=== PATIENT | male | born 1995 | race Caucasian/White ===

== ENCOUNTER 2021-11-14 21:26 | Emergency (ER) | payer OTHER ==
[2021-11-14] MEDS ORDERED: Acetaminophen 500 MG Tab PO ONE (22:22)
[2021-11-14 22:38] LABS: CORONAVIRUS COVID-19 NAA POSITIVE (NEGATIVE); RESPIRATORY SYNCYTIAL VIR NAA NEGATIVE (NEGATIVE)
--- NOTE | 2021-11-15 06:43 | EDM.PDOC ---
ED HPI GENERAL MEDICAL PROBLEM - General Chief Complaint: Fever Stated Complaint: FEVER & LIGHT HEADED Time Seen by Provider: 11/14/21 21:27 Source of Information: Reports: Patient History Limitations: Reports: No Limitations - History of Present Illness INITIAL COMMENTS - FREE TEXT/NARRATIVE: Pt. presents to ER with complaints of fever, chills, fatigue, and congestion. Denies any ill contacts. No nausea or vomiting. No chest pain or shortness of breath. Denies any skin rashes. Pt. has not been exposed to any ill contacts. 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 - Related Data Allergies Allergy/AdvReac Type Severity Reaction Status Date / Time Sulfa (Sulfonamide Allergy Other Verified 11/14/21 21:37 Antibiotics) Past Medical History - Past Health History Medical/Surgical History: Denies Medical/Surgical History - Infectious Disease History Infectious Disease History: Reports: Novel Coronavirus Social & Family History - Tobacco Use Tobacco Use Status *Q: Never Tobacco User Second Hand Smoke Exposure: No ED ROS GENERAL - Review of Systems Review Of Systems: See Below Constitutional: Reports: No Symptoms HEENT: Reports: Rhinitis, Throat Pain, Throat Swelling Respiratory: Reports: Cough Cardiovascular: Reports: No Symptoms Endocrine: Reports: No Symptoms GI/Abdominal: Reports: No Symptoms : Reports: No Symptoms Musculoskeletal: Reports: No Symptoms Skin: Reports: No Symptoms Neurological: Reports: No Symptoms Psychiatric: Reports: No Symptoms Hematologic/Lymphatic: Reports: No Symptoms Immunologic: Reports: No Symptoms ED EXAM, GENERAL - Physical Exam Exam: See Below Exam Limited By: No Limitations General Appearance: Alert, WD/WN, No Apparent Distress Eye Exam: Bilateral Eye: EOMI, PERRL Ears: Normal External Exam, Normal Canal, Hearing Grossly Normal, Normal TMs Ear Exam: Bilateral Ear: Auricle Normal, Canal Normal, TM normal Nose: Normal Inspection, Normal Mucosa, No Blood Throat/Mouth: Normal Inspection, Normal Lips, Normal Teeth, Normal Gums, Normal Oropharynx, Normal Voice, No Airway Compromise Head: Atraumatic, Normocephalic Neck: Normal Inspection, Supple, Non-Tender, Full Range of Motion Respiratory/Chest: No Respiratory Distress, Lungs Clear, Normal Breath Sounds, No Accessory Muscle Use, Chest Non-Tender Cardiovascular: Normal Peripheral Pulses, Regular Rate, Rhythm, No Edema, No Gallop, No JVD, No Murmur, No Rub Peripheral Pulses: 4+: Radial (L) GI/Abdominal: Soft, Non-Tender, No Distention, No Mass (Male) Exam: Deferred Rectal (Males) Exam: Deferred Back Exam: Normal Inspection, Full Range of Motion Extremities: Normal Inspection, Normal Range of Motion, Non-Tender, No Pedal Edema, Normal Capillary Refill Neurological: Alert, Oriented, CN II-XII Intact, Normal Cognition, Normal Reflexes, No Motor/Sensory Deficits Psychiatric: Normal Affect, Normal Mood Skin Exam: Warm, Dry, Intact, Normal Color, No Rash Lymphatic: No Adenopathy Course - Vital Signs Last Recorded V/S: Last Vital Signs Temp 37.4 C 11/15/21 00:49 Pulse 112 H 11/15/21 00:49 Resp 16 11/15/21 00:49 BP 137/65 11/15/21 00:49 Pulse Ox 99 11/15/21 00:49 - Orders/Labs/Meds Orders: Active Orders 24 hr Category Date Time Status Chest 1V Frontal [CR] Stat Exams 11/14/21 21:38 Ordered Labs: Laboratory Tests 11/14/21 Range/Units 21:37 Influenza Type A RNA Negative (NEGATIVE) RSV RNA ([facility]) Negative (NEGATIVE) Influenza Type B RNA Negative (NEGATIVE) SARS-CoV-2 RNA ([facility]) Positive H (NEGATIVE) Meds: Medications Discontinued Medications Generic Name Dose Route Start Last Admin Trade Name Freq PRN Reason Stop Dose Admin Acetaminophen 1,000 mg 11/14/21 22:22 Acetaminophen 500 Mg Tab PO 11/14/21 22:23 ONETIME ONE - Radiology Interpretation Free Text/Narrative:: chest x-ray negative for acute pathology Departure - Departure Time of Disposition: 18:44 Disposition: Home, Self-Care 01 Clinical Impression: Coronavirus infection - Discharge Information Instructions: COVID-19, COVID-19: How to Protect Yourself and Others - CDC, COVID-19: Quarantine vs. Isolation - CDC (11/11/2020) Referrals: PCP,None [Primary Care Provider] - Forms: ED Department Discharge Additional Instructions: Home to rest. Isolate from others as we discussed. Tylenol and ibuprofen as needed for discomfort. Drink plenty of fluids. If you are interested in having the monoclonal antibody infusion, please contact the ER at [phone]. They do them Sunday, Sunday, and Sunday. [facility] will be on contact with you to see how you are doing and to discuss quarantine timeframe. Return to ER if you have increased shortness of breath, chest pain, decreased level of consciousness. Sepsis Event Note (ED) - Evaluation Sepsis Screening Result: No Definite Risk - Focused Exam Vital Signs: Vital Signs Temp Pulse Resp BP Pulse Ox 11/15/21 00:49 37.4 C 112 H 16 137/65 99 - Problem List Review Problem List Initiated/Reviewed/Updated: Yes - My Orders Last 24 Hours: My Active Orders 11/14/21 21:38 Chest 1V Frontal [CR] Stat - Assessment/Plan Last 24 Hours: My Active Orders 11/14/21 21:38 Chest 1V Frontal [CR] Stat Plan: Home to rest. Isolate from others as we discussed. Tylenol and ibuprofen as needed for discomfort. Drink plenty of fluids. If you are interested in having the monoclonal antibody infusion, please contact the ER at [phone]. They do them Sunday, Sunday, and Sunday. [facility] will be on contact with you to see how you are doing and to discuss quarantine timeframe. Return to ER if you have increased shortness of breath, chest pain, decreased level of consciousness.
--- NOTE | 2021-11-15 13:23 | CR ---
[id number] RAD/RAD Chest PA or AP 1V EXAM: RAD Chest PA or AP 1V INDICATION: COUGH FEVER. COMPARISON: None. DISCUSSION/IMPRESSION: Cardiomediastinal silhouette is normal in size and contour. Lungs are clear. No pleural effusion or pneumothorax. Gurwinder Low MD 11/15/21 1322 Thank you for allowing us to participate in the care of your patient.
== END 2021-11-14 23:02 | disposition home or self-care (01) ==
LOC: VM.ED 21:26
DX: U07.1 COVID-19 (principal); Z88.2 Allergy status to sulfonamides
CPT/HCPCS: 0241U; 71045; 99283

== ENCOUNTER 2023-08-27 18:38 | Emergency (ER) | payer OTHER, MEDICAID ==
[2023-08-27] MEDS ORDERED: Naloxone 0.4 MG/ML SDV IVPUSH PRN (18:46)
[2023-08-27] MEDS ORDERED: HYDROmorphone 1 MG/ML Syringe IVPUSH ONE (18:46)
[2023-08-27] MEDS ORDERED: Diphtheria,Pertussis(Acell),Tetanus Vaccine 0.5 ML Syringe IM ONE (19:37)
[2023-08-27] MEDS ORDERED: Lidocaine 1% 10 ML MDV INJECT ONE (19:40)
[2023-08-27] MEDS: ceFAZolin 2 GM Vial IVPUSH ONE ×2 (19:55→22:40)
[2023-08-27] MEDS ORDERED: Cefepime 2 GM Vial IVPUSH ONE (20:21)
[2023-08-27] MEDS ORDERED: Take Home: Acetaminophen/HYDROcodone 325-5 MG, 5 Tab Pack PO ONE (20:31)
== END 2023-08-27 20:56 | disposition home or self-care (01) ==
LOC: VM.ED 18:38
DX: S52.502A Unspecified fracture of the lower end of left radius, initial encounter for closed fracture (principal); S61.412A Laceration without foreign body of left hand, initial encounter; Z23 Encounter for immunization; Z88.2 Allergy status to sulfonamides; W22.8XXA Striking against or struck by other objects, initial encounter
CPT/HCPCS: 12001; 73080-LT; 73090-LT; 73130-LT; 90471; 90715; 96374; 96375; 99283-25; A9270-GY; J0690; J0692; J1170; J3490